=== PATIENT | male | born 1990 | race American Indian/Alaskan Native ===

== ENCOUNTER 2017-08-20 20:10 | Emergency (ER) | payer SELFPAY ==
[2017-08-20] MEDS ORDERED: NA CHLORIDE 0.9% 1,000 ML ONE (21:47)
--- NOTE | 2017-08-20 21:50 | ER ---
Nurse's Notes [facility] Name: Yash Jimenez Age: 27 yrs Sex: Male : 1990 Arrival Date: 08/20/2017 Time: 20:15 Bed 19 Private MD: Diagnosis: Major depressive disorder, recurrent;Suicidal ideations;Abuse of non-psychoactive substances Presentation: 08/20 20:37 Presenting complaint: [facility] deputy brought pt for suicidal bb ideations pt made a video on [employer] threatening to kill himself by running into traffic. Transition of care: patient was not received from another setting of care. Onset of symptoms was August 20, 2017. Risk Assessment: Do you want to hurt yourself or someone else? Patient reports desire/thoughts of hurting themselves or someone else. Provider notified. Initial Sepsis Screen: Does the patient meet any 2 criteria? No. Patient's initial sepsis screen is negative. Does the patient have a suspected source of infection? No. Patient's initial sepsis screen is negative. Care prior to arrival: None. 20:37 Method Of Arrival: Ambulatory bb 20:37 Acuity: AGAPITO 2 bb Triage Assessment: 20:39 General: Appears in no apparent distress. Behavior is calm, cooperative. Pain: Denies bb pain. Neuro: Level of Consciousness is awake, alert, obeys commands, Oriented to person, place, time, situation, Speech is normal. Cardiovascular: No deficits noted. Respiratory: Respiratory effort is even, unlabored. GI: No deficits noted. No signs and/or symptoms were reported involving the gastrointestinal system. Derm: Skin is intact, Skin is dry, Skin is normal, Skin temperature is warm. Musculoskeletal: Circulation, motion, and sensation intact. Historical: - Allergies: 20:39 No Known Allergies; bb - Home Meds: 20:39 None [Active]; bb - PMHx: 20:39 None; bb - PSHx: 20:39 None; bb - Immunization history:: Adult Immunizations up to date. - Social history:: Smoking status: Patient/guardian denies using tobacco, Patient uses alcohol, occasionally. street drugs, marijuana. - Ebola Screening: : No symptoms or risks identified at this time. - Family history:: not pertinent. Screenin:45 Abuse screen: Denies threats or abuse. Nutritional screening: No deficits noted. bb Tuberculosis screening: No symptoms or risk factors identified. Fall Risk None identified. Assessment: 20:53 General: Appears comfortable, unkempt, Behavior is cooperative, anxious. Pain: Denies mb3 pain. Neuro: Level of Consciousness is awake, alert, obeys commands, Oriented to person, place, time, situation, Appropriate for age. Cardiovascular: No deficits noted. Reports None. Respiratory: Airway is patent Respiratory effort is even, unlabored, Respiratory pattern is regular, symmetrical, Breath sounds are clear bilaterally. GI: No deficits noted. No signs and/or symptoms were reported involving the gastrointestinal system. : No deficits noted. No signs and/or symptoms were reported regarding the genitourinary system. EENT: No deficits noted. No signs and/or symptoms were reported regarding the EENT system. Musculoskeletal: No deficits noted. No signs and/or symptoms reported regarding the musculoskeletal system. 23:38 Reassessment: Report called to Naina Sutton RN \T\ [id number]. mb3 Psych: 20:42 Subjective: Patient's mood is sad, hopeless, Delusions are denied, Hallucinations are bb denied Having thoughts of suicide. Plan for suicide is run out into traffic. Objective: Patient is cooperative, Speech is soft, Affect is flat. Interventions: Removed personal items and placed in bag. Patient placed in hospital gown. Searched person for dangerous items. Belonging list filled out. Suicide Risk Assessment: Sad Person Scale: Sex of patient: Male: Score 1 point. Age of patient: Score 1 point if patient 15-34. Depression: Score 1 point if signs of depression are present. Previous Attempt: Score 0 point if patient has not previously attempted suicide. Substance Abuse: Score 1 point if patient abuses alcohol or drugs. Rational Thinking: Score 1 point if patient is lacking rational thinking. Social Support: Score 0 if social support is present/available. Organized Plan: Score 1 point if patient had a plan in place. Relationship: Score 0 point if patient has a spouse or domestic partner. Chronic Sickness: Score 0 point if patient does not have a chronic illness, debilitating, or severe disorder. TOTAL POINTS: If total points are 5-6, proposed clinical action is to strongly consider hospitalization, depending upon confidence in the follow-up arrangement. Implement suicide precautions. Safety Checks: Personal items have been removed. Door is open. No visitors are present at this time. Patient uses marijuana. 08/21 02:37 Commitment: Patient will be a voluntary commitment. mb3 Vital Signs: 08/20 20:39 BP 145 / 81; Pulse 103; Resp 16 S; Temp 98.5(T); Pulse Ox 96% on R/A; Weight 77.11 kg bs1 (R); Height 5 ft. 9 in. (175.26 cm) (R); Pain 0/10; 23:00 BP 138 / 78; Pulse 69; Resp 16; Pulse Ox 100% on R/A; oe 20:39 Body Mass Index 25.10 (77.11 kg, 175.26 cm) bs1 ED Course: 20:15 Patient arrived in ED. mb3 20:26 Sanford Casas MD is Attending Physician. efraín 20:35 Micha Davila, MAKI is Primary Nurse. mb3 20:39 Triage completed. bb 20:39 Arm band placed on Patient placed in an exam room, on a stretcher, clothes removed, bb inventoried, given to security. 20:45 Patient has correct armband on for positive identification. Placed in gown. Bed in low bb position. 20:47 Safety checks: Items removed:. Safety checks: Door open/sign placed on door: yes. oe Family/friend present: no. 20:50 Warm blanket given. Snacks given with soda and banana by Nurse Alysha. oe 21:00 Safety checks: Items removed: yes. Door open/sign placed on door: yes. Family/friend oe present: yes. Family/friends encouraged to stay with patient. 21:15 Safety checks: Items removed: yes. Door open/sign placed on door: yes. Family/friend oe present: yes. Family/friends encouraged to stay with patient. 21:30 Safety checks: Items removed: yes. Door open/sign placed on door: yes. Family/friend oe present: yes. Family/friends encouraged to stay with patient. 21:45 Safety checks: Items removed: yes. Door open/sign placed on door: yes. Family/friend oe present: yes. Family/friends encouraged to stay with patient. 21:55 Inserted saline lock: 20 gauge in right antecubital area, using aseptic technique. bs1 Blood collected. 22:00 Safety checks: Items removed: yes. Door open/sign placed on door: yes. Family/friend oe present: yes. Family/friends encouraged to stay with patient. 22:07 Diet: Patient given water. oe 22:15 Safety checks: Items removed: yes. Door open/sign placed on door: yes. Family/friend oe present: yes. Family/friends encouraged to stay with patient. 22:30 Safety checks: Items removed: yes. Door open/sign placed on door: yes. Family/friend oe present: no. 22:45 Safety checks: Items removed: yes. Door open/sign placed on door: yes. Family/friend oe present: no. 22:59 Urine Drug Screen Sent. oe 23:00 Safety checks: Items removed: yes. Door open/sign placed on door: yes. Family/friend oe present: no. 23:15 Safety checks: Items removed: yes. Door open/sign placed on door: yes. Family/friend oe present: yes. Family/friends encouraged to stay with patient. 23:30 Safety checks: Items removed: yes. Door open/sign placed on door: yes. Family/friend oe present: yes. Family/friends encouraged to stay with patient. 23:39 No provider procedures requiring assistance completed. Patient transferred, IV remains mb3 in place. 23:45 Safety checks: Items removed: yes. Door open/sign placed on door: yes. Family/friend oe present: yes. 08/21 00:00 Safety checks: Items removed: yes. Door open/sign placed on door: yes. Family/friend oe present: no. 00:30 Safety checks: Items removed: yes. Door open/sign placed on door: yes. Family/friend oe present: no. 00:45 Safety checks: Items removed: yes. Door open/sign placed on door: yes. Family/friend oe present: no. 01:00 Safety checks: Items removed: yes. Door open/sign placed on door: yes. Family/friend oe present: no. 01:15 Safety checks: Items removed: yes. Door open/sign placed on door: yes. Family/friend oe present: no. 01:43 Safety checks: Items removed: yes. Door open/sign placed on door: yes. Family/friend oe present: no. Administered Medications: 08/20 21:55 Drug: NS 0.9% 1000 ml Route: IV; Rate: 1 bolus; Site: right antecubital; bs1 08/21 02:37 Follow up: Response: No adverse reaction; IV Status: Completed infusion; IV Intake: mb3 1000ml Intake: 02:37 IV: 1000ml; Total: 1000ml. mb3 Outcome: 08/20 21:50 ER care complete, transfer ordered by . efraín 08/21 02:36 Transferred by private ambulance to [facility]. mb3 Condition: stable Instructed on the need for transfer. 02:39 Patient left the ED. mb3 Signatures: Sanford Casas MD MD cha Ballard, Brenda, RN RN bb Tra Lopez Brittany RN RN bs1 Micha Davila RN RN mb3 Corrections: (The following items were deleted from the chart) 08/20 21:03 20:39 BP 145 / 81; Pulse 103bpm; Resp 16bpm; Spontaneous; Pulse Ox 96% RA; 77.11 kg bs1 Reported; Height 5 ft. 9 in. Reported; BMI: 25.1; Pain 0/10; bb 21:49 21:42 Safety checks: Items removed: yes. Door open/sign placed on door: yes. oe Family/friend present: yes. Family/friends encouraged to stay with patient. oe 22:04 22:00 Safety checks: Items removed: yes. Door open/sign placed on door: yes. oe Family/friend present: yes. oe 22:36 22:15 Safety checks: Items removed: yes. Door open/sign placed on door: yes. oe Family/friend present: no. oe
--- NOTE | 2017-08-20 21:51 | EDPHYS ---
Physician Documentation [facility] Name: Yash Jimenez Age: 27 yrs Sex: Male : 1990 Arrival Date: 08/20/2017 Time: 20:15 Bed 19 Private MD: ED Physician Sanford Casas HPI: 08/20 21:39 This 27 yrs old Other Male presents to ER via Ambulatory with complaints of suicidal efraín ideation. 21:39 The patient presents to the emergency department with depression, suicide ideation. efraín Onset: The symptoms/episode began/occurred 3 day(s) ago. Past psychiatric history: Prior diagnosis: depression, Psychiatric medications include: none. Associated signs and symptoms: The patient has no apparent associated signs or symptoms. Severity of symptoms: At their worst the symptoms were moderate just prior to arrival, in the emergency department the symptoms have improved moderately. The patient has experienced similar episodes in the past, a few times. Historical: - Allergies: 20:39 No Known Allergies; bb - Home Meds: 20:39 None [Active]; bb - PMHx: 20:39 None; bb - PSHx: 20:39 None; bb - Immunization history:: Adult Immunizations up to date. - Social history:: Smoking status: Patient/guardian denies using tobacco, Patient uses alcohol, occasionally. street drugs, marijuana. - Ebola Screening: : No symptoms or risks identified at this time. - Family history:: not pertinent. ROS: 21:39 Constitutional: Negative for fever, chills, and weight loss, Eyes: Negative for injury, efraín pain, redness, and discharge, ENT: Negative for injury, pain, and discharge, Neck: Negative for injury, pain, and swelling, Cardiovascular: Negative for chest pain, palpitations, and edema, Respiratory: Negative for shortness of breath, cough, wheezing, and pleuritic chest pain, Abdomen/GI: Negative for abdominal pain, nausea, vomiting, diarrhea, and constipation, Back: Negative for injury and pain, : Negative for injury, bleeding, discharge, and swelling, MS/Extremity: Negative for injury and deformity, Skin: Negative for injury, rash, and discoloration, Neuro: Negative for headache, weakness, numbness, tingling, and seizure, Allergy/Immunology: Negative for hives, rash, and allergies, Endocrine: Negative for neck swelling, polydipsia, polyuria, polyphagia, and marked weight changes, Hematologic/Lymphatic: Negative for swollen nodes, abnormal bleeding, and unusual bruising. 21:39 Psych: Positive for depression, suicidal ideation. Exam: 21:39 Constitutional: This is a well developed, well nourished patient who is awake, alert, efraín and in no acute distress. Head/Face: Normocephalic, atraumatic. Eyes: Pupils equal round and reactive to light, extra-ocular motions intact. Lids and lashes normal. Conjunctiva and sclera are non-icteric and not injected. Cornea within normal limits. Periorbital areas with no swelling, redness, or edema. ENT: Nares patent. No nasal discharge, no septal abnormalities noted. Tympanic membranes are normal and external auditory canals are clear. Oropharynx with no redness, swelling, or masses, exudates, or evidence of obstruction, uvula midline. Mucous membranes moist. Neck: Trachea midline, no thyromegaly or masses palpated, and no cervical lymphadenopathy. Supple, full range of motion without nuchal rigidity, or vertebral point tenderness. No Meningismus. Chest/axilla: Normal chest wall appearance and motion. Nontender with no deformity. No lesions are appreciated. Cardiovascular: Regular rate and rhythm with a normal S1 and S2. No gallops, murmurs, or rubs. Normal PMI, no JVD. No pulse deficits. Respiratory: Lungs have equal breath sounds bilaterally, clear to auscultation and percussion. No rales, rhonchi or wheezes noted. No increased work of breathing, no retractions or nasal flaring. Abdomen/GI: Soft, non-tender, with normal bowel sounds. No distension or tympany. No guarding or rebound. No evidence of tenderness throughout. Back: No spinal tenderness. No costovertebral tenderness. Full range of motion. Male : Normal genitalia with no discharge or lesions. Skin: Warm, dry with normal turgor. Normal color with no rashes, no lesions, and no evidence of cellulitis. MS/ Extremity: Pulses equal, no cyanosis. Neurovascular intact. Full, normal range of motion. Neuro: Awake and alert, GCS 15, oriented to person, place, time, and situation. Cranial nerves II-XII grossly intact. Motor strength 5/5 in all extremities. Sensory grossly intact. Cerebellar exam normal. Normal gait. 21:39 Psych: Behavior/mood is Affect is calm, Oriented to person, place, time, Patient has no thoughts/intents to harm self or others. Judgement / Insight is normal. Delusions/hallucinations are not present. Vital Signs: 20:39 BP 145 / 81; Pulse 103; Resp 16 S; Temp 98.5(T); Pulse Ox 96% on R/A; Weight 77.11 kg bs1 (R); Height 5 ft. 9 in. (175.26 cm) (R); Pain 0/10; 23:00 BP 138 / 78; Pulse 69; Resp 16; Pulse Ox 100% on R/A; oe 20:39 Body Mass Index 25.10 (77.11 kg, 175.26 cm) bs1 MDM: 20:26 Patient medically screened. [facility] 21:48 Data reviewed: vital signs, nurses notes, lab test result(s), EKG. [facility] 08/20 21:38 Order name: Acetaminophen; Complete Time: 22:27 [facility] 08/20 21:38 Order name: Basic Metabolic Panel; Complete Time: 22:27 [facility] 08/20 21:38 Order name: CBC with Diff; Complete Time: 22:27 [facility] 08/20 21:38 Order name: ETOH Level; Complete Time: 22:27 [facility] 08/20 21:38 Order name: Hepatic Function; Complete Time: 22:27 [facility] 08/20 21:38 Order name: PT-INR; Complete Time: 22:27 [facility] 08/20 21:38 Order name: Ptt, Activated; Complete Time: 22:27 [facility] 08/20 21:38 Order name: Salicylate; Complete Time: 22:27 [facility] 08/20 21:38 Order name: Urine Drug Screen; Complete Time: 00:40 [facility] 08/20 21:38 Order name: EKG; Complete Time: 21:38 [facility] 08/20 21:38 Order name: EKG - Nurse/Tech; Complete Time: 22:59 [facility] 08/20 21:38 Order name: IV Saline Lock [facility] 08/20 23:07 Order name: Urine Dipstick--Ancillary (enter results); Complete Time: 00:40 08/20 21:38 Order name: Labs collected and sent [facility] 08/20 21:38 Order name: Urine Dipstick-Ancillary (obtain specimen) [facility] Administered Medications: 21:55 Drug: NS 0.9% 1000 ml Route: IV; Rate: 1 bolus; Site: right antecubital; bs1 08/21 02:37 Follow up: Response: No adverse reaction; IV Status: Completed infusion; IV Intake: mb3 1000ml Disposition: 08/20/17 21:50 Transfer ordered to [facility]. Diagnosis are Major depressive disorder, recurrent, Suicidal ideations, Abuse of non-psychoactive substances. - Reason for transfer: Higher level of care. - Accepting physician is to amish, psych. - Condition is Stable. - Problem is new. - Symptoms have improved. Signatures: Dispatcher [employer] EDMS Sanford Casas MD MD cha Ballard, Brenda, RN RN Julieta Ochoa RN RN bs1 Micha Davila RN RN mb3 Corrections: (The following items were deleted from the chart) 00:44 08/20 21:50 08/20/2017 21:50 Transfer ordered to [facility]. [facility] Diagnosis is Major depressive disorder, recurrent; Suicidal ideations. Reason for transfer: Higher level of care. Accepting physician is to amish, psych. Condition is Stable. Problem is new. Symptoms have improved. [facility] 08/21 02:39 00:44 08/20/2017 21:50 Transfer ordered to [facility]. Diagnosis is mb3 Major depressive disorder, recurrent; Suicidal ideations; Abuse of non-psychoactive substances. Reason for transfer: Higher level of care. Accepting physician is to amish, psych. Condition is Stable. Problem is new. Symptoms have improved. [facility]
[2017-08-20 22:01] LABS: Absolute Lymphocytes (CBC) 2.2 K/uL (0.7-4.9); Absolute Monocytes 0.7 K/uL (0.1-1.3); Absolute Neutrophil 8.2 K/uL (1.8-8.0); Basophils % 0.4 % (0-1.3); Eosinophils % 0.7 % (0-4.4); Hematocrit 38.4 % (39.6-49.0); Lymphocytes % 19.8 % (15.3-44.8); MCH 30.6 pg (27.0-35.0); MCV 87.4 fL (80-100); MPV 7.5 fL (7.6-11.3); Monocytes % 6.1 % (3.3-12.3)
[2017-08-20 22:10] LABS: Protime INR 1.1
[2017-08-20 22:14] LABS: Bicarbonate 31 mEq/L (21-31); Glucose Level 111 mg/dL (65-120); Potassium 3.6 mEq/L (3.6-5.0); Sodium Level 141 mEq/L (135-145)
[2017-08-20 22:20] LABS: ALT/SGPT 20 IU/L (10-60); AST/SGOT 27 IU/L (10-42); Albumin 4.7 g/dL (3.2-5.5); Alkaline Phosphatase 42 IU/L (42-121); BUN Blood Urea Nitrogen 20 mg/dL (6-20); Bilirubin Direct 0.1 mg/dL (0-0.2); Bilirubin Total 0.7 mg/dL (0.3-1.2); Protein, Total 7.8 g/dL (6.0-8.3)
[2017-08-20 22:22] LABS: Alcohol Serum/Plasma < 10 mg/dl
[2017-08-20 23:08] LABS: Barbiturates NEGATIVE (NEGATIVE); Benzodiazepines NEGATIVE (NEGATIVE); Cocaine NEGATIVE (NEGATIVE); Opiates NEGATIVE (NEGATIVE); Phencyclidine NEGATIVE (NEGATIVE); THC Cannibis POSITIVE (NEGATIVE)
[2017-08-20 23:15] LABS: Urine Blood NEGATIVE (NEG); Urine Glucose NEGATIVE (NEG); Urine Protein NEGATIVE (NEG); Urine Specific Gravity 1.025 (1.005-1.030); Urine pH 6.5 (5.0-7.0)
[2017-08-20 23:16] LABS: METHAMPHETAM POSITIVE (NEGATIVE)
--- NOTE | 2017-08-21 09:10 | EKG ---
Test Date: 2017-08-20 Test Time: 22:54:49 [employer] Tender: CHRISTOPHER MEASUREMENT RESULTS: Intervals: Rate: 80 NM: 138 QRSD: 92 QT: 352 QTc: 405 [place]: P: 75 NM: 138 QRS: 77 T: 57 INTERPRETIVE STATEMENTS: Normal sinus rhythm with sinus arrhythmia Normal ECG No previous ECG available for comparison Electronically Signed On 08-21-17 09:10:00 CDT by Jesse Brink
== END 2017-08-21 02:39 | disposition short-term general hospital (02) ==
LOC: ER 20:10
DX: R45.851 Suicidal ideations (principal); F55.8 Abuse of other non-psychoactive substances
CPT/HCPCS: 36415; 80048; 80076; 80307; 80320; 80329; 81003; 85025; 85610; 85730; 93005; 96360; 96361; 99285; J7030

== ENCOUNTER 2018-08-02 19:02 | Emergency (ER) | payer SELFPAY ==
[2018-08-02] MEDS ORDERED: HYDROCODONE/APAP 10/325 TAB ONE (20:16)
--- NOTE | 2018-08-02 21:00 | ER ---
Nurse's Notes [facility] Name: Yash Jimenez Age: 28 yrs Sex: Male : 1990 Arrival Date: 08/02/2018 Time: 19:06 Bed 14 Private MD: Diagnosis: Cutaneous abscess of neck Presentation: 08/02 19:29 Presenting complaint: Patient states: bump to the back of my head/neck for 3 days, it ch hurts and is swollen. Transition of care: patient was not received from another setting of care. Onset of symptoms was July 30, 2018. Risk Assessment: Do you want to hurt yourself or someone else? Patient reports no desire to harm self or others. Initial Sepsis Screen: Does the patient meet any 2 criteria? No. Patient's initial sepsis screen is negative. Does the patient have a suspected source of infection? No. Patient's initial sepsis screen is negative. Care prior to arrival: None. 19:29 Method Of Arrival: Ambulatory 19:29 Acuity: AGAPITO 3 ch Triage Assessment: 19:30 General: Appears in no apparent distress. uncomfortable, Behavior is calm, cooperative, ch appropriate for age. Pain: Complains of pain in occiput and right mid cervical area. Historical: - Allergies: 19:30 No Known Allergies; - Home Meds: 19:30 None [Active]; ch - PMHx: 19:30 None; ch - PSHx: 19:30 None; - Immunization history:: Adult Immunizations up to date, Last tetanus immunization: unknown, Flu vaccine is up to date. - Social history:: Smoking status: Patient/guardian denies using tobacco, Patient uses alcohol, but reports only rare drinking. Patient/guardian denies using street drugs. - Ebola Screening: : Patient negative for fever greater than or equal to 101.5 degrees Fahrenheit, and additional compatible Ebola Virus Disease symptoms Patient denies exposure to infectious person Patient denies travel to an Ebola-affected area in the 21 days before illness onset No symptoms or risks identified at this time. Screenin:45 Abuse screen: Denies threats or abuse. Nutritional screening: No deficits noted. jb4 Tuberculosis screening: No symptoms or risk factors identified. Fall Risk None identified. Assessment: 19:42 General: Appears in no apparent distress. uncomfortable, Behavior is calm, cooperative, jb4 appropriate for age. Pain: Complains of pain in right base of the skull Pain does not radiate. Pain currently is 10 out of 10 on a pain scale. Quality of pain is described as pressure, Pain began 2-3 days ago. Is continuous. Neuro: Level of Consciousness is awake, alert, obeys commands, Oriented to person, place, time, situation. Cardiovascular: Patient's skin is warm and dry. Respiratory: Airway is patent Respiratory effort is even, unlabored, Breath sounds are clear Breath sounds are coarse. GI: No signs and/or symptoms were reported involving the gastrointestinal system. : No signs and/or symptoms were reported regarding the genitourinary system. EENT: No signs and/or symptoms were reported regarding the EENT system. Derm: Skin is intact, Skin is pink, warm \T\ dry. Abscess located on right base of the skull is quarter sized, has no drainage, is hot to touch, is red, is raised. Musculoskeletal: Circulation, motion, and sensation intact. 20:21 Reassessment: Patient appears in no apparent distress at this time. Patient and/or jb4 family updated on plan of care and expected duration. Pain level reassessed. Patient is alert, oriented x 3, equal unlabored respirations, skin warm/dry/pink. Pt reports a decrease in pain from 10/10 to 8/10 Patient states feeling better. 21:11 Reassessment: Patient appears in no apparent distress at this time. Patient and/or jb4 family updated on plan of care and expected duration. Pain level reassessed. Patient is alert, oriented x 3, equal unlabored respirations, skin warm/dry/pink. Patient states feeling better. Vital Signs: 19:30 BP 145 / 80; Pulse 81; Resp 16; Temp 98.7(O); Pulse Ox 99% on R/A; Weight 86.18 kg; Height 5 ft. 10 in. (177.80 cm); Pain 9/10; 20:00 BP 144 / 87; Pulse 77; Resp 16; Pulse Ox 100% on R/A; Pain 8/10; jb4 21:11 BP 137 / 94; Pulse 72; Resp 16; Pulse Ox 100% on R/A; jb4 19:30 Body Mass Index 27.26 (86.18 kg, 177.80 cm) ED Course: 19:06 Patient arrived in ED. rg4 19:30 Triage completed. 19:30 Arm band placed on left wrist. Patient placed in an exam room, on a stretcher. 19:32 Pablo Perez, RN is Primary Nurse. jb4 19:38 Logan Price NP is PHCP. pm1 19:38 Yovanny Ashby MD is Attending Physician. pm1 19:45 Patient has correct armband on for positive identification. Bed in low position. Call jb4 light in reach. Side rails up X 1. Pulse ox on. NIBP on. 21:00 Assist provider with I \T\ D: of an abscess on Back of the neck. Set up I\T\D tray. mallory 4 Performed by Logan Price NP Dressing with 4X4s, Patient tolerated well. 21:12 Patient did not have IV access during this emergency room visit. jb4 Administered Medications: 20:00 Not Given (Patient Refused): Tetanus-Diphtheria Toxoid Adult 0.5 ml IM once jb4 20:05 Drug: [place] 10 mg-325 mg 1 tabs Route: PO; jb4 20:23 Follow up: Response: No adverse reaction; Pain is decreased jb4 Outcome: 21:00 Discharge ordered by . pm1 21:12 Discharged to home ambulatory. jb4 21:12 Condition: stable 21:12 Discharge instructions given to patient, Instructed on discharge instructions, follow up and referral plans. medication usage, Demonstrated understanding of instructions, follow-up care, medications, Prescriptions given X 2. 21:12 Patient left the ED. jb4 Signatures: Alissa Romero, RN RN Logan Price NP ROASTERMAN pm1 Vani Coughlin rg4 Pablo Perez RN RN jb4
--- NOTE | 2018-08-02 21:01 | EDPHYS ---
Physician Documentation [facility] Name: Yash Jimenez Age: 28 yrs Sex: Male : 1990 Arrival Date: 08/02/2018 Time: 19:06 Bed 14 Private MD: ED Physician Yovanny Ashby HPI: 08/02 20:59 This 28 yrs old Other Male presents to ER via Ambulatory with complaints of Abscess. pm1 20:59 The patient presents with an abscess of the right base of the skull. Description: pm1 draining, raised. Onset: The symptoms/episode began/occurred 3 day(s) ago. Possible cause(s): haircut from [employer]. Associated signs and symptoms: Pertinent negatives: fever, headache. Modifying factors: the symptoms are alleviated by nothing, the symptoms are aggravated by squeezing the lesion and expressing the contents, touching. Severity of symptoms: in the emergency department the symptoms are actually worse. The patient has not experienced similar symptoms in the past. The patient has not recently seen a physician. reports up to date tetanus. Historical: - Allergies: 19:30 No Known Allergies; ch - Home Meds: 19:30 None [Active]; ch - PMHx: 19:30 None; ch - PSHx: 19:30 None; ch - Immunization history:: Adult Immunizations up to date, Last tetanus immunization: unknown, Flu vaccine is up to date. - Social history:: Smoking status: Patient/guardian denies using tobacco, Patient uses alcohol, but reports only rare drinking. Patient/guardian denies using street drugs. - Ebola Screening: : Patient negative for fever greater than or equal to 101.5 degrees Fahrenheit, and additional compatible Ebola Virus Disease symptoms Patient denies exposure to infectious person Patient denies travel to an Ebola-affected area in the 21 days before illness onset No symptoms or risks identified at this time. ROS: 20:59 Constitutional: Negative for fever, chills, and weight loss, Eyes: Negative for injury, pm1 pain, redness, and discharge, ENT: Negative for injury, pain, and discharge, Neck: Negative for injury, pain, and swelling, Cardiovascular: Negative for chest pain, palpitations, and edema, Respiratory: Negative for shortness of breath, cough, wheezing, and pleuritic chest pain, Abdomen/GI: Negative for abdominal pain, nausea, vomiting, diarrhea, and constipation, Back: Negative for injury and pain, MS/Extremity: Negative for injury and deformity. 20:59 Neuro: Negative for headache, weakness, numbness, tingling, and seizure. 20:59 Skin: Positive for abscess, of the right base of the skull. Exam: 20:59 Constitutional: This is a well developed, well nourished patient who is awake, alert, pm1 and in no acute distress. Head/Face: Normocephalic, atraumatic. Eyes: Pupils equal round and reactive to light, extra-ocular motions intact. Lids and lashes normal. Conjunctiva and sclera are non-icteric and not injected. Cornea within normal limits. Periorbital areas with no swelling, redness, or edema. ENT: Nares patent. No nasal discharge, no septal abnormalities noted. Tympanic membranes are normal and external auditory canals are clear. Oropharynx with no redness, swelling, or masses, exudates, or evidence of obstruction, uvula midline. Mucous membranes moist. 20:59 Chest/axilla: Normal chest wall appearance and motion. Nontender with no deformity. No lesions are appreciated. Cardiovascular: Regular rate and rhythm with a normal S1 and S2. No gallops, murmurs, or rubs. Normal PMI, no JVD. No pulse deficits. Respiratory: Lungs have equal breath sounds bilaterally, clear to auscultation and percussion. No rales, rhonchi or wheezes noted. No increased work of breathing, no retractions or nasal flaring. Abdomen/GI: Soft, non-tender, with normal bowel sounds. No distension or tympany. No guarding or rebound. No evidence of tenderness throughout. Back: No spinal tenderness. No costovertebral tenderness. Full range of motion. Skin: Warm, dry with normal turgor. Normal color with no rashes, no lesions, and no evidence of cellulitis. MS/ Extremity: Pulses equal, no cyanosis. Neurovascular intact. Full, normal range of motion. 20:59 Neck: External neck: abscess, that is small, of the right mid cervical area, cellulitis, is not appreciated. 20:59 Neuro: Orientation: is normal, Motor: moves all fours, Sensation: is normal, no obvious gross deficits. Vital Signs: 19:30 BP 145 / 80; Pulse 81; Resp 16; Temp 98.7(O); Pulse Ox 99% on R/A; Weight 86.18 kg; ch Height 5 ft. 10 in. (177.80 cm); Pain 9/10; 20:00 BP 144 / 87; Pulse 77; Resp 16; Pulse Ox 100% on R/A; Pain 8/10; jb4 21:11 BP 137 / 94; Pulse 72; Resp 16; Pulse Ox 100% on R/A; jb4 19:30 Body Mass Index 27.26 (86.18 kg, 177.80 cm) Procedures: 20:59 I \T\ D: Incision and drainage was performed for an abscess of the right base of the pm1 skull Prepped with Betadine, Anesthetized with 2 ml's 1% Lidocaine. Incised with #11 blade. Drained small amount Loculations removed. Abscess cavity explored. the patient tolerated the procedure well, too small for packing. MDM: 19:50 Patient medically screened. pm1 20:59 Data reviewed: vital signs. Data interpreted: Pulse oximetry: on room air is 100 %. pm1 Interpretation: normal. Counseling: I had a detailed discussion with the patient and/or guardian regarding: the historical points, exam findings, and any diagnostic results supporting the discharge/admit diagnosis, the need for outpatient follow up, to return to the emergency department if symptoms worsen or persist or if there are any questions or concerns that arise at home. 08/02 19:56 Order name: Incision \T\ Drainage Setup; Complete Time: 19:59 pm1 Administered Medications: 20:00 Not Given (Patient Refused): Tetanus-Diphtheria Toxoid Adult 0.5 ml IM once jb4 20:05 Drug: Ney 10 mg-325 mg 1 tabs Route: PO; jb4 20:23 Follow up: Response: No adverse reaction; Pain is decreased jb4 Disposition: 23:39 Co-signature as Attending Physician, Yovanny Ashby MD. rn Disposition: 08/02/18 21:00 Discharged to Home. Impression: Cutaneous abscess of neck. - Condition is Stable. - Discharge Instructions: Skin Abscess, Incision and Drainage. - Prescriptions for Tylenol- Codeine #3 300-30 mg Oral Tablet - take 2 tablets by ORAL route every 6 hours As needed; 20 tablet. Bactrim DS 800- 160 mg Oral Tablet - take 1 tablet by ORAL route every 12 hours for 10 days; 20 tablet. - Medication Reconciliation Form, Thank You Letter, Antibiotic Education, Prescription Opioid Use form. - Follow up: Emergency Department; When: As needed; Reason: Worsening of condition. Follow up: Private Physician; When: 2 - 3 days; Reason: Recheck today's complaints, Continuance of care, Re-evaluation by your physician. - Problem is new. - Symptoms have improved. Signatures: Alissa Romero RN RN Yovanny Hogan MD MD rn Marinas, Patrick, NP [employer] pm1 Pablo Perez RN RN jb4 Corrections: (The following items were deleted from the chart) 21:12 21:00 08/02/2018 21:00 Discharged to Home. Impression: Cutaneous abscess of neck. jb4 Condition is Stable. Forms are Medication Reconciliation Form, Thank You Letter, Antibiotic Education, Prescription Opioid Use. Follow up: Emergency Department; When: As needed; Reason: Worsening of condition. Follow up: Private Physician; When: 2 - 3 days; Reason: Recheck today's complaints, Continuance of care, Re-evaluation by your physician. Problem is new. Symptoms have improved. pm1
[2018-08-02] MEDS ORDERED: LIDOCAINE 1% MPF 5 ML VIAL ONE (21:02)
--- OUTSIDE RECORDS SUMMARY | 2018-08-03 12:36 | XMS REPORT | Clinical Summary ---
:1990 Author Organization [facility] Address [address] [place] [address] Care Team Providers Name Role Phone Asked, No Pcp Primary Care Provider Unavailable Allergies No Known Allergies Medications Medication Sig Dispensed Refills Start Date End Date Status escitalopram (LEXAPRO) Take 1 tablet 30 tablet 0 08/24/2017 09/23/2017 10 MG (10 mg total) tabletIndications: by mouth daily Anxiety with for 30 days. 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 Last Filed Vital Signs Vital Sign Reading Time Taken Blood Pressure 123/57 08/25/2017 7:31 PM CDT Pulse 70 08/25/2017 7:31 PM CDT Temperature 36.4 C (97.5 F) 08/25/2017 7:31 PM CDT Respiratory Rate 18 08/25/2017 7:31 PM CDT Oxygen Saturation 99% 08/25/2017 7:31 PM CDT Inhaled Oxygen Concentration - - Weight 78 kg (172 lb) 08/24/2017 7:03 AM CDT Height 175.3 cm (5' 9") 08/21/2017 5:34 AM CDT Body Mass Index 25.4 08/21/2017 5:34 AM CDT Plan of Treatment Not on file Procedures Procedure Name Priority Date/Time Associated Comments Diagnosis ZZESTIMATED GFR Routine 08/21/2017 1:45 Results for this PM CDT procedure are in the results section. COMPREHENSIVE Routine 08/21/2017 1:45 Results for this METABOLIC PANEL PM CDT procedure are in the results section. T4, FREE Routine 08/21/2017 1:45 Results for this PM CDT procedure are in the results section. THYROID STIMULATING Routine 08/21/2017 1:45 Results for this HORMONE PM CDT procedure are in the results section. ECG 12-LEAD STAT 08/21/2017 9:35 Results for this AM CDT procedure are in the results section. HEMOGLOBIN A1C Routine 08/21/2017 5:00 Results for this AM CDT procedure are in the results section. LIPID PANEL Routine 08/21/2017 5:00 Results for this AM CDT procedure are in the results section. after 08/02/2017 Results Estimated GFR (08/21/2017 1:45 PM CDT) Pathologist [facility] GFR Non Af Amer >90 mL/min/1.73 [facility] DEPARTMENT OF m2 PATHOLOGY AND GENOMIC MEDICINE GFR Af Amer >90 mL/min/1.73 [facility] DEPARTMENT OF Comment: m2 PATHOLOGY AND Chronic kidney disease: <60 mL/min/1.73m2 GENOMIC MEDICINE Kidney failure: <15 mL/min/1.73m2 The estimated GFR is calculated from the IDMS-traceable Modification of Diet in Renal Disease Equation. The accuracy of the calculation is poor when the creatinine is normal. Calculated values >90 mL/min/1.73m2 are not reported. This equation has not been validated in children (<18 years), women, the elderly (>70 years), or ethnic groups other than Caucasians and Americans. Specimen Plasma specimen Performing Organization Address City/State/Zipcode Phone Number [facility] DEPARTMENT OF PATHOLOGY AND [address] [place] [id number] [facility] Thyroid stimulating hormone (08/21/2017 1:45 PM CDT) TSH 0.18 (L) 0.27 - 4.20 uIU/mL [facility] DEPARTMENT OF PATHOLOGY AND [place] [facility] Specimen Plasma specimen Performing Organization Address City/State/Zipcode Phone Number [facility] DEPARTMENT OF PATHOLOGY AND [address] [place] [address] GENOMIC MEDICINE T4, free (08/21/2017 1:45 PM CDT) T4, free 1.0 0.9 - 1.7 ng/dL [facility] DEPARTMENT OF PATHOLOGY AND GENOMIC MEDICINE Specimen Plasma specimen Performing Organization Address City/State/Zipcode Phone Number [facility] DEPARTMENT OF PATHOLOGY AND [address] [place] [address] [facility] Comprehensive metabolic panel (08/21/2017 1:45 PM CDT) Sodium 138 135 - 148 [facility] DEPARTMENT OF mEq/L PATHOLOGY AND GENOMIC MEDICINE Potassium 3.9 3.5 - 5.0 [facility] DEPARTMENT OF mEq/L PATHOLOGY AND GENOMIC MEDICINE Chloride 99 98 - 112 mEq/L [facility] DEPARTMENT OF PATHOLOGY AND GENOMIC MEDICINE CO2 28 24 - 31 mEq/L [facility] DEPARTMENT OF PATHOLOGY AND GENOMIC MEDICINE Anion gap 11@ANIO 7 - 15 mEq/L [facility] DEPARTMENT OF PATHOLOGY AND GENOMIC MEDICINE BUN 14 6 - 20 mg/dL [facility] DEPARTMENT OF PATHOLOGY AND GENOMIC MEDICINE Creatinine 0.9 0.7 - 1.2 [facility] DEPARTMENT OF mg/dL PATHOLOGY AND GENOMIC MEDICINE Glucose 98 65 - 99 mg/dL [facility] DEPARTMENT OF PATHOLOGY AND GENOMIC MEDICINE Calcium 9.4 8.3 - 10.2 [facility] DEPARTMENT OF mg/dL PATHOLOGY AND GENOMIC MEDICINE Protein 6.6 6.3 - 8.3 g/dL [facility] DEPARTMENT OF Comment: PATHOLOGY AND Vivian 4.6-7.0 g/dL GENOMIC MEDICINE 1 week 4.4-7.6 g/dL 7 months-1year5.1-7.3 g/dL 1-2 years5.6-7.5 g/dL >3 years6.0-8.0 g/dL 18-150 6.3-8.3 g/dL Albumin 3.6 3.5 - 5.0 g/dL [facility] DEPARTMENT OF PATHOLOGY AND GENOMIC MEDICINE A/G ratio 1.2 0.7 - 3.8 [facility] DEPARTMENT OF PATHOLOGY AND GENOMIC MEDICINE Alkaline phosphatase 39 (L) 40 - 129 U/L [facility] DEPARTMENT OF PATHOLOGY AND GENOMIC MEDICINE AST 19 10 - 50 U/L [facility] DEPARTMENT OF PATHOLOGY AND GENOMIC MEDICINE ALT 16 5 - 50 U/L [facility] DEPARTMENT OF PATHOLOGY AND GENOMIC MEDICINE Total bilirubin <0.2 0.0 - 1.2 [facility] DEPARTMENT OF mg/dL PATHOLOGY AND GENOMIC MEDICINE Specimen Plasma specimen Performing Organization Address City/[facility] Phone Number [facility] DEPARTMENT OF PATHOLOGY AND [address] [place] [phone] [facility] ECG 12 lead (08/21/2017 9:35 AM CDT) Ventricular rate 53 [facility] Atrial rate 53 [facility] SC interval 138 [facility] QRSD interval 100 [facility] QT interval 410 [facility] QTC interval 384 [facility] P axis 1 58 [facility]USE QRS axis 1 77 [facility] T wave axis 73 [facility]USE EKG impression Sinus [facility] MUSE bradycardia-Otherwise normal ECG-No previous ECGs available-Electronicall y Signed By Sada Duffy MD ([id number]) on 08/23/2017 6:23:23 PM Specimen Performing Organization Address [facility] Cent[facility]oca Phone Number [facility] MUSE [address] [place] [address] Hemoglobin A1c (08/21/2017 5:00 AM CDT) Hemoglobin A1C 5.1 4.0 - 5.6 % [facility] DEPARTMENT OF Comment: PATHOLOGY AND HbA1c cutoffs for diagnosing diabetes: GENOMIC MEDICINE 4.0% - 5.6%=normal 5.7% - 6.4%=increased risk for diabetes (prediabetes) >=6.5%=diabetes Goals for glycemic control (ADA 2016) < 7.0%Target for non adults with diabetes. More or less stringent targets may be appropriate for individual patients. <7.5% Target for Children and adolescents with type 1 diabetes. Specimen Performing Organization Address [facility] Cent[facility] Phone Number [facility] DEPARTMENT OF PATHOLOGY AND [address] [place] [phone] GEN[facility]IC MEDICINE Lipid panel (08/21/2017 5:00 AM CDT) Cholesterol 150 <200 mg/dL [facility] DEPARTMENT OF PATHOLOGY AND GENOMIC MEDICINE Triglycerides 125 <150 mg/dL [facility] DEPARTMENT OF PATHOLOGY AND GENOMIC MEDICINE HDL cholesterol 33 (L) >40 mg/dL [facility] DEPARTMENT OF PATHOLOGY AND GENOMIC MEDICINE LDL cholesterol 106 (H)Comment: <100 mg/dL [facility] DEPARTMENT Result obtained by OF PATHOLOGY AND direct LDL GENOMIC MEDICINE measurement Lipid panel SeeBelow [facility] DEPARTMENT interpretation Comment: OF PATHOLOGY AND Total Cholesterol (mg/dL) GENOMIC MEDICINE <200 Desirable [id number] >=240High Triglycerides (mg/dL) <150 Normal 549-199Jpvnucipfs-cinn 200-499High >=500Very high HDL Cholesterol (mg/dL) <40Low (male) <40Low (female) LDL Cholesterol (mg/dL) <100 Optimal 100-129Near or above optimal [phone]-lsdo 160-189High >=190Very high Risk Catergories that modify LDL goals. Risk CatergoriesLDL goal (mg/dL) CHD and CHD risk equivalent<100 (10-year risk >20%) Multiple (2+) risk factors <130 (10-year risk=<20%) 0-1 risk factors <160 (<10-year risk) Defining levels of lipids in metabolic syndrome Triglycerides>=150 mg/dL HDL Cholesterol Men<40 mg/dL Women<40 mg/dL Non-HDL cholesterol is a second target for therapy in persons with high triglycerides (>=200 mg/dL) Specimen Plasma specimen Performing Organization Address City/State/Zipcode Phone Number [facility] DEPARTMENT OF PATHOLOGY AND [address] [place] [address] [place] [facility] after 08/02/2017 Advance Directives Patient has advance care planning documents, and code status on file. For more information, please contact:Tramaine Casey[address] [place] [address] Code Status Date Activated Date Inactivated Comments Full Code 08/21/2017 9:10 AM 08/26/2017 2:09 AM Code Status decision reached by: Patient
== END 2018-08-02 21:12 | disposition home or self-care (01) ==
LOC: ER 19:02
PROC: 0J940ZZ Drainage of Right Neck Subcutaneous Tissue and Fascia, Open Approach (ICD-10-PCS; principal; 2018-08-02)
DX: L02.11 Cutaneous abscess of neck (principal); Z23 Encounter for immunization
CPT/HCPCS: 99284

== ENCOUNTER 2022-08-18 13:20 | Emergency (ER) | payer SELFPAY ==
[2022-08-18] MEDS ORDERED: TETANUS & DIPHTHERIA TOX,ADULT 0.5 ML VIAL ONE (13:51)
--- NOTE | 2022-08-18 14:53 | ER ---
Nurse's Notes [facility] Name: Yash Escamilla Age: 32 yrs Sex: Male : 1990 Arrival Date: 08/18/2022 Time: 13:20 Bed 4 Private MD: Diagnosis: Hand Laceration/ Open wound of hand Presentation: 08/18 13:24 Chief complaint: Patient states: puncture wound to right hand by catfish oli. Pt aa5 reports numbness to right thumb. 13:24 Coronavirus screen: At this time, the client does not indicate any symptoms associated aa5 with coronavirus-19. Ebola Screen: Patient denies travel to an Ebola-affected area in the 21 days before illness onset. Initial Sepsis Screen: Does the patient meet any 2 criteria? No. Patient's initial sepsis screen is negative. Does the patient have a suspected source of infection? No. Patient's initial sepsis screen is negative. Risk Assessment: Do you want to hurt yourself or someone else? Patient reports no desire to harm self or others. Onset of symptoms was August 18, 2022. 13:24 Acuity: AGAPITO 3 aa5 13:24 Method Of Arrival: Ambulatory aa5 Historical: - Allergies: 13:33 No Known Allergies; aa5 - PMHx: 13:33 None; aa5 - PSHx: 13:33 None; aa5 - Immunization history:: Last tetanus immunization: unknown. - Social history:: Smoking status: Patient denies any tobacco usage or history of. Screenin:57 [facility] ED Fall Risk Assessment (Adult) History of falling in the last 3 months, aa5 including since admission No falls in past 3 months (0 pts) Confusion or Disorientation No (0 pts) Intoxicated or Sedated No (0 pts) Impaired Gait No (0 pts) Mobility Assist Device Used No (0 pt) Altered Elimination No (0 pt) Score/Fall Risk Level 0 - 2 = Low Risk. Abuse screen: Denies threats or abuse. Nutritional screening: No deficits noted. Tuberculosis screening: No symptoms or risk factors identified. Assessment: 13:24 General: Appears comfortable, Behavior is calm, cooperative. Pain: Complains of pain in aa5 right hand Pain currently is 5 out of 10 on a pain scale. Neuro: Level of Consciousness is awake, alert, obeys commands, Oriented to person, place, time, situation. Cardiovascular: Heart tones S1 S2 present Rhythm is regular. Respiratory: Airway is patent Respiratory effort is even, unlabored, Respiratory pattern is regular, symmetrical. GI: No signs and/or symptoms were reported involving the gastrointestinal system. : No signs and/or symptoms were reported regarding the genitourinary system. EENT: No signs and/or symptoms were reported regarding the EENT system. Derm: Skin is pink, warm \T\ dry. puncture wound noted to right hand/base of right thumb, no active bleeding noted. Musculoskeletal: Range of motion: intact in all extremities. 13:25 Reassessment: Wound cleaned with Hibiclens and water, pt tolerated well. . aa5 15:03 Reassessment: wound dressed with Kerlix. . aa5 Vital Signs: 13:24 BP 134 / 71; Pulse 77; Resp 18 S; Temp 98(TE); Pulse Ox 98% on R/A; aa5 ED Course: 13:22 Patient arrived in ED. mr 13:24 Arm band placed on Patient placed in an exam room, on a stretcher. aa5 13:24 Patient has correct armband on for positive identification. Bed in low position. Call aa5 light in reach. Side rails up X 1. 13:25 Morris Pino, MAKI is Primary Nurse. bp 13:26 Guille Hartman MD is Attending Physician. bs3 13:33 Triage completed. aa5 14:37 Hand Left 3 View XRAY In Process Unspecified. EDMS 14:51 Rene Verduzco MD is Referral Physician. bs3 15:03 No provider procedures requiring assistance completed. Patient did not have IV access aa5 during this emergency room visit. Administered Medications: 13:50 Drug: Tetanus-Diphtheria Toxoid IM Adult 0.5 ml {Detail Supervisor: [employer]. Exp: aa5 08/15/2023. Lot #: [id number]. } Route: IM; Site: right deltoid; 15:04 Follow up: Response: No adverse reaction aa5 Medication: 13:50 Vaccine Information Statement (VIS) provided today. Questions and/or concerns aa5 addressed. VIS edition date: October 10, 2020. Outcome: 14:52 Discharge ordered by . bs3 15:03 Discharged to home ambulatory. aa5 15:03 Condition: stable 15:03 Discharge instructions given to patient, Instructed on discharge instructions, follow up and referral plans. medication usage, Demonstrated understanding of instructions, follow-up care, medications, Prescriptions given X 1. 15:04 Patient left the ED. aa5 Signatures: Dispatcher [employer] NGANi ArreolaMandi, RN RN aa5 Morris Pino, RN RN Noemi Oquendo RN RN ll1 Guille Hartman MD MD bs3 Corrections: (The following items were deleted from the chart) 13:54 13:27 Arm band placed on Patient placed in an exam room, on a stretcher, ll1 aa5
--- NOTE | 2022-08-18 14:53 | EDPHYS ---
Physician Documentation [facility] Name: Yash Escamilla Age: 32 yrs Sex: Male : 1990 Arrival Date: 08/18/2022 Time: 13:20 Bed 4 Private MD: ED Physician Guille Hartman HPI: 08/18 13:29 This 32 yrs old Male presents to ER via Unassigned with complaints of Catfish bs3 Puncture wound. 13:29 Patient grabbed a catfish and one of the barbs stuck him happened just prior to arrival bs3 he had significant bleeding and was concerned and therefore came in he denies any other injuries he does not know the last time he had a tetanus shot, denies any other injuries, pain is mild. . Historical: - Allergies: 13:33 No Known Allergies; aa5 - PMHx: 13:33 None; aa5 - PSHx: 13:33 None; aa5 - Immunization history:: Last tetanus immunization: unknown. - Social history:: Smoking status: Patient denies any tobacco usage or history of. ROS: 13:29 Constitutional: Negative for fever, chills bs3 13:29 All other systems are negative. Exam: 13:29 Head/Face: Normocephalic, atraumatic. Eyes: Pupils equal round and reactive to light, bs3 extra-ocular motions intact. Lids and lashes normal. ENT: mmm, no posterior phyarngeal erythema Chest/axilla: Normal chest wall appearance and motion. Nontender with no deformity. No lesions are appreciated. Cardiovascular: Regular rate and rhythm with a normal S1 and S2. symmetric pulses in upper extremities Skin: Warm, dry with normal turgor. Normal color with no rashes, no lesions, and no evidence of cellulitis. MS/ Extremity: superficial wound in between 1/2 digits on left. no palpable fb Vital Signs: 13:24 BP 134 / 71; Pulse 77; Resp 18 S; Temp 98(TE); Pulse Ox 98% on R/A; aa5 MDM: 13:26 Patient medically screened. bs3 13:29 Data reviewed: vital signs, nurses notes. ED course: possible wound vs retained fb, bs3 will update tetanus, clean, give antibiotics and get xr. We had pt wash hand in water with soap for 5 minutes. . 14:51 ED course: X-ray negative for acute foreign body as interpreted by myself will give bs3 antibiotics advised outpatient follow-up. 08/18 13:29 Order name: Hand Left 3 View XRAY bs3 Administered Medications: 13:50 Drug: Tetanus-Diphtheria Toxoid IM Adult 0.5 ml {Microelectronics Engineer: [employer]. Exp: aa5 08/15/2023. Lot #: [id number]. } Route: IM; Site: right deltoid; 15:04 Follow up: Response: No adverse reaction aa5 Disposition Summary: 08/18/22 14:52 Discharge Ordered Location: Home bs3 Problem: new bs3 Symptoms: have improved bs3 Condition: Stable bs3 Diagnosis - Hand Laceration/ Open wound of hand bs3 Followup: bs3 - With: Private Physician - When: 5 - 6 days - Reason: Re-evaluation by your physician Followup: bs3 - With: Rene Verduzco MD - When: 5 - 6 days - Reason: Recheck today's complaints Discharge Instructions: - Discharge Summary Sheet bs3 - Laceration Care, Adult, [id number] bs3 - Puncture Wound, [id number] bs3 Forms: - Work release form bs3 - Medication Reconciliation Form bs3 - Thank You Letter bs3 - Antibiotic Education bs3 - Prescription Opioid Use bs3 Prescriptions: - Clindamycin HCl 300 mg Oral Capsule - take 1 capsule by ORAL route every 6 hours for 5 days; 20 capsule; Refills: 0, bs3 Product Selection Permitted Signatures: Dispatcher [employer] Mandi Alonso RN RN aa5 Guille Hartman MD MD bs3
--- NOTE | 2022-08-18 15:20 | RAD REPORT ---
EXAM DESCRIPTION: FILI CABRERA - 08/18/2022 2:35 pm CLINICAL HISTORY: possible cat fish oli COMPARISON: No comparisons TECHNIQUE: Left hand, 3 views. FINDINGS: No fracture is identified. There is no dislocation or periosteal reaction noted. Joint alignment is maintained. No foreign body or other soft tissue abnormality. IMPRESSION: Negative left hand examination.
[2022-08-18 15:37] VITALS: BP 134/71; TEMP 98; O2SAT 98
== END 2022-08-18 15:04 | disposition home or self-care (01) ==
LOC: ER 13:20
DX: S61.412A Laceration without foreign body of left hand, initial encounter (principal)
CPT/HCPCS: 90471; 90714; 99284